=== PATIENT | female | born 1945 | race Caucasian/White ===

== ENCOUNTER → 2016-05-24 | Outpatient (REF) | payer MEDICARE, OTHER ==
[2016-05-24 19:48] LABS: BASO % 0.3 % (0.0-1.0); EOS # 0.1 K/mm3 (0.0-0.50); EOS % 1.9 % (0.0-3.0); LARGE UNSTAINED CELL # 0.1 K/mm3 (0.0-0.4); LYMPH # 1.2 K/mm3 (1.5-4.5); MEAN CORPUSCULAR HEMOGLOBIN 32.3 pg (27.0-33.0); MEAN CORPUSCULAR HGB CONC 33.6 g/dl (32.0-36.5); MONO # 0.4 K/mm3 (0.0-0.8); MONO % 5.6 % (0.0-5.0); NEUTROPHILS # 5.3 K/mm3 (1.8-7.7); NEUTROPHILS % 73.2 % (36.0-66.0); PLATELET COUNT, AUTOMATED 154 k/mm3 (150-450); RED CELL DISTRIBUTION WIDTH 12.7 % (11.5-14.5); WHITE BLOOD COUNT 7.2 K/mm3 (4.0-10.0)
[2016-05-24 20:18] LABS: ALBUMIN 4.4 GM/DL (3.2-5.2); ALBUMIN/GLOBULIN RATIO 1.22 (1.00-1.93); BILIRUBIN,TOTAL 1.4 MG/DL (0.2-1.0); CALCIUM LEVEL 9.5 MG/DL (8.8-10.2); CREATININE FOR GFR 1.17 MG/DL (0.55-1.02); FREE T4 1.22 NG/DL (0.76-1.46); GLOMERULAR FILTRATION RATE 48.8 (>45); POTASSIUM SERUM 4.1 MEQ/L (3.5-5.1)
== END ==
LOC: M SFHCADAM 15:28
PROVIDERS: ATTEND Family Medicine
DX: Z00.00 Encounter for general adult medical examination without abnormal findings (principal); E66.9 Obesity, unspecified; Z79.899 Other long term (current) drug therapy
CPT/HCPCS: 80053; 80061; 84439; 84443; 85025; G0463

== ENCOUNTER → 2017-03-09 | Outpatient (REF) | payer MEDICARE, OTHER ==
[2017-03-09 20:03] LABS: BASO # 0.1 10^3/uL (0.0-0.2); BASO % 0.8 % (0.0-1.0); EOS # 0.2 10^3/uL (0.0-0.50); EOS % 3.6 % (0.0-3.0); IMMATURE GRANULOCYTE % 0.2 % (0-0); LYMPH # 1.7 10^3/uL (1.5-4.5); LYMPH % 27.2 % (24.0-44.0); MEAN CORPUSCULAR HEMOGLOBIN 32.2 pg (27.0-33.0); MEAN CORPUSCULAR HGB CONC 32.6 g/dl (32.0-36.5); MEAN CORPUSCULAR VOLUME 98.9 fl (80.0-96.0); MONO # 0.5 10^3/uL (0.0-0.8); MONO % 8.4 % (0.0-5.0); NEUTROPHILS # 3.8 10^3/uL (1.8-7.7); NEUTROPHILS % 59.8 % (36.0-66.0); PLATELET COUNT, AUTOMATED 164 10^3/uL (150-450); RED CELL DISTRIBUTION WIDTH 12.9 % (11.5-14.5); WHITE BLOOD COUNT 6.3 10^3/uL (4.0-10.0)
[2017-03-09 20:12] LABS: ALBUMIN 4.1 GM/DL (3.2-5.2); ALBUMIN/GLOBULIN RATIO 1.17 (1.00-1.93); CALCIUM LEVEL 9.5 MG/DL (8.8-10.2); CREATININE FOR GFR 1.06 MG/DL (0.55-1.02); GLOMERULAR FILTRATION RATE 54.6 (>39); POTASSIUM SERUM 4.2 MEQ/L (3.5-5.1); TOTAL PROTEIN 7.6 GM/DL (6.4-8.2)
== END ==
LOC: M SFHCADAM 15:42
PROVIDERS: ATTEND Family Medicine
DX: I10 Essential (primary) hypertension (principal); Z23 Encounter for immunization
CPT/HCPCS: 80053; 85025; 90662; G0008; G0463

== ENCOUNTER → 2018-03-02 | Outpatient (REF) | payer MEDICARE, OTHER ==
[2018-03-02 13:17] LABS: BASO % 0.7 % (0.0-1.0); EOS # 0.3 10^3/uL (0.0-0.50); EOS % 4.5 % (0.0-3.0); HEMATOCRIT 45.2 % (36.0-47.0); HEMOGLOBIN 14.7 g/dl (12.0-15.5); IMMATURE GRANULOCYTE % 0.2 % (0-3.0); LYMPH # 2.2 10^3/uL (1.5-4.5); LYMPH % 36.7 % (24.0-44.0); MEAN CORPUSCULAR HEMOGLOBIN 31.7 pg (27.0-33.0); MEAN CORPUSCULAR HGB CONC 32.5 g/dl (32.0-36.5); MEAN CORPUSCULAR VOLUME 97.4 fl (80.0-96.0); MONO # 0.5 10^3/uL (0.0-0.8); MONO % 8.7 % (0.0-5.0); NEUTROPHILS # 2.9 10^3/uL (1.8-7.7); NEUTROPHILS % 49.2 % (36.0-66.0); PLATELET COUNT, AUTOMATED 161 10^3/uL (150-450); RED BLOOD COUNT 4.64 10^6/uL (4.00-5.40); RED CELL DISTRIBUTION WIDTH 12.5 % (11.5-14.5)
[2018-03-02 13:27] LABS: ALBUMIN 3.8 GM/DL (3.2-5.2); ALBUMIN/GLOBULIN RATIO 1.19 (1.00-1.93); ALKALINE PHOSPHATASE 117 U/L (45-117); ALT/SGPT 20 U/L (12-78); ANION GAP 7 MEQ/L (8-16); AST/SGOT 17 U/L (7-37); BILIRUBIN,TOTAL 0.6 MG/DL (0.2-1.0); BLOOD UREA NITROGEN 20 MG/DL (7-18); CALCIUM LEVEL 9.1 MG/DL (8.8-10.2); CARBON DIOXIDE LEVEL 29 MEQ/L (21-32); CHLORIDE LEVEL 107 MEQ/L (98-107); CREATININE FOR GFR 1.08 MG/DL (0.55-1.30); GLOMERULAR FILTRATION RATE 53.2 (>39); GLUCOSE, FASTING 100 MG/DL (70-100); SODIUM LEVEL 143 MEQ/L (136-145)
== END ==
LOC: M SFHCADAM 08:45
DX: R26.89 Other abnormalities of gait and mobility (principal); I10 Essential (primary) hypertension
CPT/HCPCS: 80053

== ENCOUNTER → 2018-04-18 | Outpatient (CLI) | payer MEDICARE, OTHER | LOC: M ST 11:23 | DX: R13.10 Dysphagia, unspecified (principal) | CPT/HCPCS: 74230 ==

== ENCOUNTER → 2018-10-05 | Outpatient (REF) | payer MEDICARE, OTHER ==
[2018-10-05 19:33] LABS: BASO # 0.1 10^3/uL (0.0-0.2); BASO % 0.8 % (0.0-1.0); EOS # 0.2 10^3/uL (0.0-0.50); HEMATOCRIT 42.1 % (36.0-47.0); HEMOGLOBIN 13.8 g/dl (12.0-15.5); LYMPH # 1.8 10^3/uL (1.5-4.5); LYMPH % 29.6 % (24.0-44.0); MEAN CORPUSCULAR HEMOGLOBIN 33.3 pg (27.0-33.0); MEAN CORPUSCULAR HGB CONC 32.8 g/dl (32.0-36.5); MEAN CORPUSCULAR VOLUME 101.4 fl (80.0-96.0); MONO # 0.6 10^3/uL (0.0-0.8); MONO % 9.6 % (0.0-5.0); NEUTROPHILS # 3.4 10^3/uL (1.8-7.7); NEUTROPHILS % 56.8 % (36.0-66.0); PLATELET COUNT, AUTOMATED 159 10^3/uL (150-450); RED BLOOD COUNT 4.15 10^6/uL (4.00-5.40); WHITE BLOOD COUNT 5.9 10^3/uL (4.0-10.0)
[2018-10-05 19:55] LABS: ALT/SGPT 18 U/L (12-78); BILIRUBIN,TOTAL 1.1 MG/DL (0.2-1.0); BLOOD UREA NITROGEN 15 MG/DL (7-18); CALCIUM LEVEL 8.8 MG/DL (8.8-10.2); CARBON DIOXIDE LEVEL 28 MEQ/L (21-32); CHLORIDE LEVEL 108 MEQ/L (98-107); CHOLESTEROL LEVEL 169 MG/DL (<200); CHOLESTEROL RISK RATIO 2.449 (<5); CREATININE FOR GFR 0.94 MG/DL (0.55-1.30); GLOMERULAR FILTRATION RATE > 60.0 (>39); GLUCOSE, FASTING 78 MG/DL (70-100); HDL CHOLESTEROL 69 MG/DL (>40); LDL CHOLESTEROL 82 MG/DL (<100); NON-HDL-C 100 MG/DL; POTASSIUM SERUM 4.1 MEQ/L (3.5-5.1); SODIUM LEVEL 143 MEQ/L (136-145); TOTAL PROTEIN 7.4 GM/DL (6.4-8.2); TRIGLYCERIDES LEVEL 88 MG/DL (<150)
== END ==
LOC: M SFHCADAM 14:34
PROVIDERS: ATTEND Family Medicine
DX: I10 Essential (primary) hypertension (principal); E78.5 Hyperlipidemia, unspecified
CPT/HCPCS: 80053; 80061; 85025; G0463

== ENCOUNTER → 2018-10-19 | Outpatient (REF) | payer MEDICARE, OTHER | LOC: M SFHCADAM 13:34 | PROVIDERS: ATTEND Family Medicine | DX: N39.0 Urinary tract infection, site not specified (principal) | CPT/HCPCS: 81002; 87088; 87186; G0463 ==

== ENCOUNTER → 2018-12-28 | Outpatient (CLI) | payer MEDICARE, OTHER ==
--- NOTE | 2018-12-28 10:13 | REP ---
DEEP VENOUS ULTRASONOGRAPHY BILATERAL THIGH, RULE OUT DVT: REASON: Pain and swelling. TECHNIQUE: Multiple ultrasonographic images of the deep venous structures of the thigh were obtained from the common femoral vein to the popliteal vein along with Doppler interrogation and color flow Doppler images. FINDINGS: There is no abnormal echogenic material seen within any of the visualized deep venous structures that would suggest acute thrombosis. Coaptation is unremarkable throughout. Doppler interrogation shows an expected response to respiratory variability and augmentation. The color flow images show what appears to be a normal vascular pattern throughout. IMPRESSION: There is no ultrasonographic evidence of deep venous thrombosis involving any of the visualized deep venous structures of the bilateral thigh, as described above. Electronically Signed by Tee Samson DO 12/28/2018 03:28 P
== END ==
LOC: M RAD 09:07
PROVIDERS: ATTEND Physician Assistant
DX: M79.605 Pain in left leg (principal); R22.42 Localized swelling, mass and lump, left lower limb

== ENCOUNTER 2019-10-09 21:52 | Inpatient (IN) | payer MEDICARE, OTHER ==
[~2019-10-09] VITALS: Ht 162.6 cm; Wt 80.7 kg
[2019-10-09] MEDS ORDERED: LISI-538 PO (22:03)
[2019-10-09] MEDS ORDERED: PARO5TAB PO (22:03)
[2019-10-09] MEDS ORDERED: OMEP-218 PO (22:03)
[2019-10-09] MEDS ORDERED: SIMV10TA21 PO (22:03)
[2019-10-09 22:55] LABS: BASO % 0.4 % (0.0-1.0); EOS % 0.4 % (0.0-3.0); HEMATOCRIT 46.6 % (36.0-47.0); HEMOGLOBIN 15.5 g/dl (12.0-15.5); MEAN CORPUSCULAR HEMOGLOBIN 31.6 pg (27.0-33.0); MEAN CORPUSCULAR HGB CONC 33.3 g/dl (32.0-36.5); MEAN CORPUSCULAR VOLUME 94.9 fl (80.0-96.0); MONO # 0.8 10^3/uL (0.0-0.8); MONO % 6.9 % (0.0-5.0); NEUTROPHILS # 9.1 10^3/uL (1.5-8.5); NEUTROPHILS % 82.8 % (36.0-66.0); PLATELET COUNT, AUTOMATED 167 10^3/uL (150-450); RED BLOOD COUNT 4.91 10^6/uL (4.00-5.40)
[2019-10-09 23:06] LABS: INR 0.97; PROTHROMBIN TIME 12.6 SECONDS (11.8-14.0)
[2019-10-09 23:07] LABS: PARTIAL THROMBOPLASTIN TIME 26.3 SECONDS (25.0-38.4)
[2019-10-09 23:18] LABS: ALBUMIN 4.2 GM/DL (3.2-5.2); ALT/SGPT 21 U/L (12-78); BILIRUBIN,DIRECT 0.2 MG/DL (0.0-0.2); BILIRUBIN,TOTAL 0.7 MG/DL (0.2-1.0); BLOOD UREA NITROGEN 19 MG/DL (7-18); CALCIUM LEVEL 9.4 MG/DL (8.8-10.2); CARBON DIOXIDE LEVEL 26 MEQ/L (21-32); CHLORIDE LEVEL 110 MEQ/L (98-107); CREATININE FOR GFR 1.01 MG/DL (0.55-1.30); GLOMERULAR FILTRATION RATE 57.4 (>39); GLUCOSE, FASTING 120 MG/DL (70-100); LIPASE 60 U/L (73-393); POTASSIUM SERUM 3.5 MEQ/L (3.5-5.1); SODIUM LEVEL 141 MEQ/L (136-145); TOTAL PROTEIN 7.7 GM/DL (6.4-8.2)
[2019-10-10] MEDS ORDERED: lisinopriL 20 MG TAB PO ONE
[2019-10-10] MEDS ORDERED: ISOVUE-370 76% 100ML VIAL As Ordered ONE (00:08)
[2019-10-10] MEDS ORDERED: LABETALOL 100MG/20ML VIAL IV STA (00:34)
--- NOTE | 2019-10-10 00:36 | REPVR ---
PROCEDURE INFORMATION: Exam: CT Abdomen And Pelvis With Contrast Exam date and time: 10/09/2019 11:54 PM Age: 74 years old Clinical indication: Other: Rectal bleed; Abdominal pain; Generalized; Additional info: Llq pain, rectal bleeding TECHNIQUE: Imaging protocol: Computed tomography of the abdomen and pelvis with intravenous contrast. Radiation optimization: All CT scans at this facility use at least one of these dose optimization techniques: automated exposure control; mA and/or kV adjustment per patient size (includes targeted exams where dose is matched to clinical indication); or iterative reconstruction. Contrast material: ISO; Contrast volume: 100 ml; Contrast route: AC; COMPARISON: No relevant prior studies available. FINDINGS: Liver: Normal. No mass. Gallbladder and bile ducts: Normal. No calcified stones. No ductal dilation. Pancreas: Normal. No ductal dilation. Spleen: Small low-attenuation area in the caudal aspect of the spleen measuring 12 mm which is nonspecific. Adrenals: Normal. No mass. Kidneys and ureters: There are bilateral renal cysts measuring up to 13 mm on the right and 15 mm on the left which appear to reflect Bosniak 1 cysts with no required follow-up. There is a Hounsfield measurement of 15 on the left and 7 on the right. Stomach and bowel: Minimal diverticulosis of the distal ileum. There is colonic diverticulosis without evidence of diverticulitis. Wall thickening of the left colon beginning in the splenic flexure and is greatest in the distal descending colon consistent with left colitis. There is pericolonic induration about the descending colon. Appendix: There are no changes of appendicitis. A normal appendix is not seen. Intraperitoneal space: Unremarkable. No free air. No significant fluid collection. Vasculature: Unremarkable. No abdominal aortic aneurysm. Lymph nodes: Unremarkable. No enlarged lymph nodes. Bladder: Unremarkable as visualized. Reproductive: Status post hysterectomy. Bones/joints: Unremarkable. No acute fracture. Soft tissues: Unremarkable. Other findings: Minimal left base fibro-atelectatic change adjacent to the left hemidiaphragm which is elevated. IMPRESSION: 1. Mild nonspecific left colitis, greatest in the distal descending colon. 2. Colonic diverticulosis without diverticulitis. 3. Small nonspecific low-attenuation focus in the caudal spleen . 4. Minimal diverticulosis of the distal ileum. 5. Status post hysterectomy. Electronically signed by: Dinesh Krueger On 10/10/2019 00:36:26 AM
[2019-10-10] MEDS ORDERED: CIPROFLOXACIN 500MG TABLET PO ONE (01:00)
[2019-10-10] MEDS ORDERED: metroNIDAZOLE (FLAGYL) 500 MG TAB PO ONE (01:00)
[2019-10-10] MEDS ORDERED: PANTOPRAZOLE 40MG VIAL (C9113 PER 1) IV ONE (01:00)
[2019-10-10 01:23] LABS: CK-MB VALUE MASS < 1.0 NG/ML (<3.6); CPK CREATINE PHOSPHOKINASE 63 U/L (26-192); MB/CK RELATIVE INDEX 1.59 (< OR =4); TROPONIN I < 0.02 NG/ML (< 0.10)
[2019-10-10] MEDS ORDERED: LABETALOL 100MG/20ML VIAL IV PRN (02:00)
--- NOTE | 2019-10-10 02:56 | HPEPDOC ---
[facility] Medical History & Physical Date of Admission October 10, 2019 Date of Service: October 10, 2019 Primary Care Physician: ELVIA LORA DO Attending Physician: SUZANNA SAVAGE MD History and Physical CHIEF COMPLAINT: Hematochezia HISTORY OF PRESENT ILLNESS: Azalia Russo is a 74-year-old female who presented to the emergency room today after multiple episodes of hematochezia at home. She states she started feeling unwell this morning with some abdominal cramping in the left lower quadrant. She also had an episode of dizziness and weakness which resolved after about a minute with sitting down. Subsequently, she went to the bathroom for a bowel movement and noticed bright red blood in the toilet. She states she has a history of hemorrhoids, but this seems like a lot more blood than she had past before. She went about her day and had multiple additional episodes of hematochezia with bowel movements. She denies loose or watery stools. She states she did have some nausea in the morning when she felt lightheaded, but otherwise denies vomiting. She does note a decreased appetite today, but is tolerating small amounts of food. 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 She states that she has chronic left-sided back pain, but it has been much more sore since then. She states that she does not like taking a lot of medicines and therefore has not taken much for her back pain. She does take Aleve occasionally at home for it. She rates her pain a 0 out of 10. If she is lying still, but a 10 out of 10. Anytime she moves. The pain is in the left side of her lower back and does not radiate. She states it is a sharp, achy pain. She does have a history of hypertension and does not measure her blood pressure home. She states last time she was at a doctor was about a year ago and she was told her blood pressure was okay then. She has not taken her lisinopril in the past few days because she ran out. PAST MEDICAL HISTORY: 1. Hypertension 2. Hyperlipidemia. 3. Symptomatic menopause. 4. GERD PAST SURGICAL HISTORY: 1. Appendectomy 2. Hysterectomy. 3. Multiple surgeries on both feet. SOCIAL HISTORY: Never smoker, very occasional alcohol (1 beer, 2-3 times a year). No illicit drug use. Lives at home alone with her two dogs FAMILY HISTORY: Father: 77 yrs, kidney failure Mother: 83 yrs, temporal arteritis, thyroid disease Siblings: alive 66, 62 yrs, Brother born with brain tumor. Sister with HTN and breast cancer, thyroid disease ALLERGIES: Please see below. REVIEW OF SYSTEMS: CONSTITUTIONAL: Denies fevers, chills, night sweats, fatigue, unexpected change in weight. HEENT: Denies change in vision, change in hearing. CARDIOVASCULAR: Denies chest pain, palpitations, shortness of breath. RESPIRATORY: Denies dyspnea, cough, wheezing. GASTROINTESTINAL: Denies vomiting, diarrhea, constipation. GENITOURINARY: Denies dysuria, urinary frequency, urinary urgency. SKIN: Positive for rash under breasts. MUSCULOSKELETAL: Positive for chronic back pain NEUROLOGICAL: Denies headache, dizziness, weakness. PSYCHIATRIC: Denies change in mood. HOME MEDICATIONS: Please see below. PHYSICAL EXAMINATION: VITAL SIGNS: See below GENERAL: Alert, comfortable, in no acute distress HEENT: Normocephalic, atraumatic, PERRLA, EOMI, sclera anicteric, moist mucous membranes NECK: Supple, trachea midline, no lymphadenopathy CARDIOVASCULAR: Regular rate and rhythm, normal S1 and S2. No murmurs, rubs, or gallops RESPIRATORY: Clear to auscultation bilaterally with equal air entry bilaterally. No wheezing, rhonchi, or rales. ABDOMEN: Soft, nondistended, bowel sounds present. Mildly tender to palpation in the LLQ without rebound, guarding, or rigidity EXTREMITIES: No cyanosis or edema. Pulses 2+/4 in bilateral upper and lower extremities SKIN: Moist cracked skin beneath bilateral breasts, no erythema or warmth NEUROLOGIC: Alert and oriented 3 to person, place and time. No focal deficits appreciated PSYCHIATRIC: Mood and affect appropriate LABORATORY DATA: See below. IMAGING: - CT abdomen/pelvis: 1. Mild nonspecific left colitis, greatest in the distal descending colon. 2. Colonic diverticulosis without diverticulitis. 3. Small nonspecific low-attenuation focus in the caudal spleen . 4. Minimal diverticulosis of the distal ileum. 5. Status post hysterectomy. MICROBIOLOGY: Please see below. ASSESSMENT: 74-year-old female with a history of hypertension, presents with one -day history of hematochezia, admitted for treatment of severe and symptomatic hypertension and acute colitis. PLAN: 1. Severe asymptomatic hypertension 2/2 medical noncompliance vs worsening essential hypertension vs undertreated back pain - had not taken her medications because it ran out, also states she does not like to take pills. As high as 230s/110s in the ED. s/p one dose IV labetalol in the ED - continue IV labetalol prn - continue home lisinopril 20 mg. Add amlodipine 5 mg - pt has chronic back pain which may contribute, pain control with tylenol 2. GI bleed 2/2 hemorrhoids vs acute colitis - check stool occult. H/H wnl, recheck with morning labs - IV PPI BID - likely referral to GI on discharge for follow up endoscopy/colonoscopy 3. Acute colitis 2/2 infectious vs inflammatory - Mildly elevated WBC count of 11.0. No current concern for sepsis. Check GI panel and stool occult blood. Abx coverage with ciprofloxacin and metronidazole day #1 of 7 4. Abnormal EKG - no priors to compare. monitor on telemetry, ordered TTE 5. Chronic low back pain - worse due to recent heavy lifting at home, takes occasional Aleve at home - pain control with tylenol. may be contributing to elevated BP 6. Hyperlipidemia. - continue home statin 7. GERD - PPI as noted above 8. History of hot flashes. - continue home paxil DVT prophylaxis: Praneeth's/SCD's, hold off on medical prophylaxis in the setting of GI bleed Disposition: admitted for further work up and blood pressure control Vital Signs Vital Signs Date Time Temp Pulse Resp B/P (MAP) Pulse Ox O2 Delivery O2 Flow Rate FiO2 10/10/19 01:32 72 230/120 10/09/19 23:23 94 10/09/19 21:52 98.8 20 Room Air Laboratory Data Labs 24H Laboratory Tests 2 10/09/19 22:32: Immature Granulocyte % (Auto) 0.5, Neutrophils (%) (Auto) 82.8H, Lymphocytes (%) (Auto) 9.0L, Monocytes (%) (Auto) 6.9H, Eosinophils (%) (Auto) 0.4, Basophils (%) (Auto) 0.4, Neutrophils # (Auto) 9.1H, Lymphocytes # (Auto) 1.0L, Monocytes # (Auto) 0.8, Eosinophils # (Auto) 0.0, Basophils # (Auto) 0.0, Nucleated Red Blood Cells % (auto) 0.0, Prothrombin Time 12.6, Prothromb Time International Ratio 0.97, Activated Partial Thromboplast Time 26.3, Anion Gap 5L, Glomerular Filtration Rate 57.4, Calcium Level 9.4, Total Bilirubin 0.7, Direct Bilirubin 0.2, Aspartate Amino Transf (AST/SGOT) 20, Alanine Aminotransferase (ALT/SGPT) 21, Alkaline Phosphatase 139H, Total Creatine Kinase 63, Creatine Kinase MB < 1.0, Creatine Kinase MB Relative Index 1.59, Troponin I < 0.02, Total Protein 7.7, Albumin 4.2, Albumin/Globulin Ratio 1.2, Lipase 60L CBC/BMP Laboratory Tests 10/09/19 22:32 Home Medications Scheduled Lisinopril (Lisinopril) 20 Mg Tablet, 20 MG PO QHS Omeprazole (Omeprazole) 20 Mg Capsule.dr, 20 MG PO Q2D AT BEDTIME Paroxetine (Paroxetine HCl) 10 Mg Tablet, 10 MG PO QHS Simvastatin (Simvastatin) 10 Mg Tablet, 10 MG PO QHS Allergies Coded Allergies: Cephalosporins (Verified Allergy, Unknown, RASH, 10/10/19) TAPE (Verified Allergy, Unknown, RASH FROM PLASTIC TAPE, 10/10/19) aspirin (Verified Adverse Reaction, Unknown, VERTIGO,RINGING IN EARS, 10/10/19) naproxen (Verified Adverse Reaction, Unknown, NAUSEA, 10/10/19) KHANH KEARNS D.O. October 10, 2019 02:56
[2019-10-10] MEDS: amLODIPine 5 MG TAB PO SCH ×2 (03:39→09:08)
[2019-10-10] MEDS: ACETAMINOPHEN TAB 650MG DOSE (2X325MG) PO PRN ×2 (03:39→14:42)
[2019-10-10] MEDS: hydrALAZINE 20MG/ML 1ML VIAL (J0360 PER 20MG) IV SCH ×4 (04:21→22:10)
[2019-10-10 05:03] VITALS: BP 138/65
[2019-10-10] MEDS: metroNIDAZOLE (FLAGYL) 500 MG TAB PO SCH ×3 (05:50→21:06)
[2019-10-10 06:08] LABS: HEMATOCRIT 45.1 % (36.0-47.0); HEMOGLOBIN 15.4 g/dl (12.0-15.5); MEAN CORPUSCULAR HEMOGLOBIN 32.7 pg (27.0-33.0); MEAN CORPUSCULAR HGB CONC 34.1 g/dl (32.0-36.5); MEAN CORPUSCULAR VOLUME 95.8 fl (80.0-96.0); PLATELET COUNT, AUTOMATED 149 10^3/uL (150-450); RED BLOOD COUNT 4.71 10^6/uL (4.00-5.40); WHITE BLOOD COUNT 11.2 10^3/uL (4.0-10.0)
[2019-10-10 06:29] LABS: CHOLESTEROL RISK RATIO 2.585 (<5); CREATININE FOR GFR 1.03 MG/DL (0.55-1.30); GLOMERULAR FILTRATION RATE 56.1 (>39); MAGNESIUM LEVEL 1.9 MG/DL (1.8-2.4); POTASSIUM SERUM 3.4 MEQ/L (3.5-5.1)
[2019-10-10 08:00] VITALS: BP 118/58
--- NOTE | 2019-10-10 08:11 | ECGEPIP ---
[facility] - ED Test Date: 2019-10-10 Pat Name: BROOKLYN KOWALSKI Department: Room: [place] [address] Gender: Female Fluid Dynamicist: natalie : 1945 Requested By: BENITO Rios Order Number: [id number] Reading MD: Andrez Samaniego Measurements Intervals [place] Rate: 60 P: 259 [place]: 99 QRS: -76 QRSD: 143 T: 8 QT: 429 QTc: 430 Interpretive Statements JUNCTIONAL RHYTHM RIGHT BUNDLE BRANCH BLOCK NO PRIORS FOR COMPARISON Electronically Signed on 10-10-2019 8:10:52 EDT by Andrez Samaniego
[2019-10-10] MEDS ORDERED: amLODIPine 5 MG TAB PO SCH (09:00)
[2019-10-10] MEDS ORDERED: ENOXAPARIN 40MG/0.4ML SYRINGE (J1650 PER 10MG) SC SCH (09:00)
[2019-10-10] MEDS: PANTOPRAZOLE 40MG VIAL (C9113 PER 1) IV SCH ×2 (09:07→21:05)
[2019-10-10] MEDS: TRIPLE PASTE 2OZ OINTMENT TOP SCH ×2 (09:07→21:07)
[2019-10-10] MEDS ORDERED: SLF 3 ML SYR IV PRN (11:30)
[2019-10-10 12:00] VITALS: BP 114/65
[2019-10-10] MEDS: SLF 3 ML SYR IV SCH ×2 (14:00→21:06)
[2019-10-10 16:00] VITALS: BP 120/63
--- NOTE | 2019-10-10 19:08 | IPNPDOC ---
Text Note Date of Service The patient was seen on 10/10/19. NOTE Subjective: -No complaints this morning, feels better. PHYSICAL EXAMINATION: VITAL SIGNS: See below GENERAL: Alert, comfortable, in no acute distress, sitting up HEENT: Normocephalic, atraumatic, PERRLA, EOMI, sclera anicteric, moist mucous membranes NECK: Supple, trachea midline, no lymphadenopathy CARDIOVASCULAR: Regular rate and rhythm, normal S1 and S2. No murmurs, rubs, or gallops RESPIRATORY: Clear to auscultation bilaterally. No wheezing, rhonchi, or rales. ABDOMEN: Normoactive bowel sounds, soft, NTND without rebound, guarding, or rigidity EXTREMITIES: No edema. Pulses 2+/4 in bilateral upper and lower extremities NEUROLOGIC: No focal deficits appreciated PSYCHIATRIC: AOx3 LABORATORY DATA: Reviewed. Stable hgb 15.4 IMAGING: - CT abdomen/pelvis: 1. Mild nonspecific left colitis, greatest in the distal descending colon. 2. Colonic diverticulosis without diverticulitis. 3. Small nonspecific low-attenuation focus in the caudal spleen . 4. Minimal diverticulosis of the distal ileum. 5. Status post hysterectomy. MICROBIOLOGY: Please see below. ASSESSMENT: 74-year-old female with a history of hypertension, presents with one-day history of hematochezia, admitted for treatment of severe hypertension and acute colitis. PLAN: 1. Hypertensive urgency 2/2 medical noncompliance - had not taken her medications because it ran out, also stated she does not like to take pills. - continue IV labetalol prn, has not needed it since restarting home lisinopril and amlodipine - continue home lisinopril 20 mg. Add amlodipine 5 mg 2. GI bleed: resolved - negative stool occult. H/H wnl - Switch PPI BID from IV to PO daily - referral to GI on discharge for follow up endoscopy/colonoscopy 3. Acute colitis 2/2 infectious vs inflammatory - Mildly elevated WBC count of 11.0. No current concern for sepsis. Check GI panel and stool occult blood. Abx coverage with ciprofloxacin and metronidazole day #2 of 7 4. Abnormal EKG - monitor on telemetry, f/u TTE 5. Chronic low back pain: worse due to recent heavy lifting at home, takes occasional Aleve at home - pain control with tylenol. 6. Hyperlipidemia. - continue home statin 7. GERD - PPI as noted above 8. History of hot flashes. - continue home paxil DVT prophylaxis: Praneeth's/SCD's, hold off on medical prophylaxis in the setting of GI bleed Disposition: likely discharge tomorrow if stable and PT/OT clears her for home discharge. VS,Fishbone, I+O VS, Fishbone, I+O Laboratory Tests 10/09/19 22:32 10/10/19 05:49 Vital Signs Date Time Temp Pulse Resp B/P (MAP) Pulse Ox O2 Delivery O2 Flow Rate FiO2 10/10/19 16:00 97.6 57 18 120/63 (82) 93 Room Air ANGEL REY MD October 10, 2019 19:08
[2019-10-10 20:00] VITALS: BP 143/66
[2019-10-10] MEDS ORDERED: lisinopriL 20 MG TAB PO SCH (21:00)
[2019-10-10] MEDS ORDERED: PARoxetine 10MG TABLET PO SCH (21:00)
[2019-10-10] MEDS ORDERED: SIMVASTATIN 10 MG TAB PO SCH (21:00)
[2019-10-10 22:00] VITALS: BP 143/90
[2019-10-10] MEDS: NYSTATIN 100,000 UNITS/GM TOPICAL PWD 15 GM TOP SCH (23:45)
[2019-10-11] VITALS: BP 125/58
[2019-10-11] MEDS ORDERED: RAMELTEON 8 MG TAB (ROZEREM) PO PRN (01:30)
[2019-10-11 04:00] VITALS: BP 123/71
[2019-10-11] MEDS: SLF 3 ML SYR IV SCH ×2 (05:00→14:19)
[2019-10-11] MEDS: metroNIDAZOLE (FLAGYL) 500 MG TAB PO SCH ×2 (05:00→14:17)
[2019-10-11 05:44] LABS: HEMATOCRIT 40.5 % (36.0-47.0); MEAN CORPUSCULAR HGB CONC 33.1 g/dl (32.0-36.5); MEAN CORPUSCULAR VOLUME 96.7 fl (80.0-96.0); PLATELET COUNT, AUTOMATED 145 10^3/uL (150-450); RED BLOOD COUNT 4.19 10^6/uL (4.00-5.40); WHITE BLOOD COUNT 9.6 10^3/uL (4.0-10.0)
[2019-10-11 05:45] LABS: CALCIUM LEVEL 8.9 MG/DL (8.8-10.2); CREATININE FOR GFR 1.01 MG/DL (0.55-1.30); GLOMERULAR FILTRATION RATE 57.4 (>39); POTASSIUM SERUM 3.6 MEQ/L (3.5-5.1)
[2019-10-11 05:47] LABS: HEMOGLOBIN 13.4 g/dl (12.0-15.5)
[2019-10-11] MEDS ORDERED: CIPROFLOXACIN 500MG TABLET PO SCH (06:00)
[2019-10-11] MEDS ORDERED: PARO5TAB PO (07:22)
[2019-10-11] MEDS ORDERED: LISI-538 PO (07:22)
[2019-10-11] MEDS ORDERED: OMEP-218 PO ×2 (07:22→10:57)
[2019-10-11] MEDS ORDERED: AMLO5TAB6 PO (07:22)
[2019-10-11] MEDS ORDERED: NYST10006 TOP (07:22)
[2019-10-11] MEDS ORDERED: CIPR-249 PO (07:22)
[2019-10-11] MEDS ORDERED: SIMV10TA21 PO (07:22)
[2019-10-11 08:00] VITALS: BP 132/68
[2019-10-11] MEDS: TRIPLE PASTE 2OZ OINTMENT TOP SCH (09:00)
[2019-10-11] MEDS: PANTOPRAZOLE 40MG VIAL (C9113 PER 1) IV SCH (09:18)
[2019-10-11] MEDS: NYSTATIN 100,000 UNITS/GM TOPICAL PWD 15 GM TOP SCH (09:18)
[2019-10-11 09:19] VITALS: BP 123/71
[2019-10-11] MEDS: amLODIPine 5 MG TAB PO SCH (09:19)
--- NOTE | 2019-10-11 10:56 | DS.PDOC ---
Discharge Summary General Date of Admission October 10, 2019 at 03:59 Date of Discharge 10/11/2019 Attending Physician: ANGEL REY MD Discharge Summary PROCEDURES PERFORMED DURING STAY: None ADMITTING DIAGNOSES: 1. Abdominal pain 2. Hypertensive urgency DISCHARGE DIAGNOSES: 1. Acute mild nonspecific left sided colitis 2. Diverticulosis 3. Hypertensive urgency 4. Hyperlipidemia. 5. GERD COMPLICATIONS/CHIEF COMPLAINT: Hypertensive Urgency. HISTORY OF PRESENT ILLNESS: 74-year-old W who presented to the emergency room after multiple episodes of hematochezia at home, with associated abdominal cramping in the left lower quadrant since morning on the day of presentation, as well as an episode of dizziness and weakness which resolved after sitting down. Subsequently, she went to the bathroom for a bowel movement and noticed bright red blood in the toilet. She reported a history of hemorrhoids, but this seemed like a lot more blood than she had before. She went about her day and had multiple additional episodes of hematochezia with bowel movements without loose or watery stools. She also reported some nausea without vomiting and poor PO. 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 HOSPITAL COURSE: In the ED, she was hypertensive to SBP 200s in the setting of long standing medication non compliance and required IV labetalol and her eventual resolution of her hypertension with yazidi of her home antihypertensives. CT A/P revealed left descending mild colitis and diverticulosis without evidence of diverticulitis, while she had mild leukocytosis to 11 and grossly normal BMP. She was started on cipro/flagyl and for the mild colitis, hydrated with IVF and slowly reintroduced to a diet that she is not tolerating a regular diet well without further bleeding episodes and was guaiac negative, while her H/H remained stable wnl. She is now being discharged home to follow up with PCP with a referral to GI for outpatient follow up and will completed 8 more days for a 10d course of cipro for the mild left sided colitis. DISCHARGE MEDICATIONS: Please see below. ALLERGIES: Please see below. PHYSICAL EXAMINATION ON DISCHARGE: VITAL SIGNS: See below GENERAL: Alert, comfortable, in no acute distress HEENT: NCAT, PERRLA, EOMI, sclera anicteric, moist mucous membranes NECK: Supple CARDIOVASCULAR: Regular rate and rhythm, normal S1 and S2. No murmurs, rubs, or gallops RESPIRATORY: Clear to auscultation bilaterally with equal air entry bilaterally. No wheezing, rhonchi, or rales. ABDOMEN: Soft, nondistended, bowel sounds present. Mild LLQ TTP without rebound, guarding, or rigidity EXTREMITIES: WWP, no edema, 2+ DP pulses NEUROLOGIC: No focal deficits appreciated PSYCHIATRIC: AOx3 LABORATORY DATA: See below. IMAGING: - CT abdomen/pelvis: 1. Mild nonspecific left colitis, greatest in the distal descending colon. 2. Colonic diverticulosis without diverticulitis. 3. Small nonspecific low-attenuation focus in the caudal spleen . 4. Minimal diverticulosis of the distal ileum. 5. Status post hysterectomy. PROGNOSIS: Good with medication adherence ACTIVITY: As tolerated DIET: Regular DISCHARGE PLAN: Home with PCP follow up to complete 8 more days of cipro DISPOSITION: Home DISCHARGE INSTRUCTIONS: 1. Please take your medications as directed and please make an effort to see your PCP for follow up ITEMS TO FOLLOWUP ON ON OUTPATIENT: 1. Colitis 2. Hypertension 3. GIB DISCHARGE CONDITION: Stable TIME SPENT ON DISCHARGE: 32 minutes. Vital Signs/I&Os Vital Signs Date Time Temp Pulse Resp B/P (MAP) Pulse Ox O2 Delivery O2 Flow Rate FiO2 10/11/19 04:00 97.0 70 20 123/71 (88) 94 Room Air I&O- Last 24 Hours up to 6 AM 10/11/19 06:00 Intake Total 1320 ml Output Total 150 ml Balance 1170 ml Laboratory Data Labs 24H Laboratory Tests 2 10/11/19 04:51: Nucleated Red Blood Cells % (auto) 0.0, Anion Gap 5L, Glomerular Filtration Rate 57.4, Calcium Level 8.9 CBC/BMP Laboratory Tests 10/11/19 04:51 Microbiology Microbiology 10/10/19 Gastrointestinal Tract Panel (PCR) - Final, Complete 10/10/19 Stool Occult Blood (SD) - Final, Complete Discharge Medications Scheduled Amlodipine Besylate (Amlodipine Besylate) 5 Mg Tablet, 5 MG PO DAILY Ciprofloxacin HCl (Cipro) 500 Mg Tablet, 500 MG PO DAILY@06 Lisinopril (Lisinopril) 20 Mg Tablet, 20 MG PO QHS Nystatin (Nystop) 60 Gm Powder, 1 DOSE TOP BID Omeprazole (Omeprazole) 20 Mg Capsule.dr, 20 MG PO Q2D AT BEDTIME Paroxetine (Paroxetine HCl) 10 Mg Tablet, 10 MG PO QHS Simvastatin (Simvastatin) 10 Mg Tablet, 10 MG PO QHS Allergies Coded Allergies: Cephalosporins (Verified Allergy, Unknown, RASH, 10/10/19) TAPE (Verified Allergy, Unknown, RASH FROM PLASTIC TAPE, 10/10/19) aspirin (Verified Adverse Reaction, Unknown, VERTIGO,RINGING IN EARS, 10/10/19) naproxen (Verified Adverse Reaction, Unknown, NAUSEA, 10/10/19) ANGEL REY MD October 11, 2019 07:14
[2019-10-11 12:00] VITALS: BP 127/64
--- NOTE | 2019-10-11 16:31 | ECHO ---
DATE OF PROCEDURE: 10/11/2019 REFERRING PHYSICIAN: Dr. Vilma Hurtado INDICATION: Abnormal ECG. HEIGHT: 163 cm WEIGHT: 81 kg 2D MEASUREMENTS: Aortic root: 2.8 cm Left atrium: 3.0 cm Ventricular septum: 1.21 cm Posterior wall: 1.20 cm Left ventricle diastole: 3.8 cm Aortic root: 2.0 cm Inferior vena cava: 1.3 cm DOPPLER MEASUREMENTS: Mild aortic regurgitation. No aortic stenosis. Aortic valve velocity: 113 cm/s LVOT velocity: 110 cm/s LVOT VTI: 21.2 cm No mitral regurgitation. Mitral E velocity: 63.7 cm/s Mitral A velocity: 75.0 cm/s Mitral deceleration time: 264 ms Very mild tricuspid regurgitation. No pulmonic regurgitation. MITRAL ANNULAR TISSUE DOPPLER: E prime septal: 5.4 cm/s E prime lateral: 6.3 cm/s DESCRIPTION: Rhythm was sinus. This was a moderately technically difficult echocardiogram. This was a 2D, M-mode, color flow Doppler and pulse wave Doppler examination and included mitral annular tissue Doppler. CONCLUSIONS: 1. Normal left ventricle internal dimensions. Borderline concentric left ventricle hypertrophy. No regional wall motion abnormalities. Hyperdynamic left ventricular (LV) systolic function. Left ventricular ejection fraction (LVEF) 75% by visual estimate. Grade 1 LV diastolic dysfunction (impaired relaxation filling pattern). 2. Hyperdynamic right ventricle systolic function. Normal right ventricle size. 3. Very mild aortic valve sclerosis of a 3-cusp aortic valve. Mild aortic regurgitation. 4. No pericardial effusion. 5. Otherwise normal appearing echocardiogram Doppler findings. 6. Moderately technically difficult echocardiogram.
== END 2019-10-11 16:35 | disposition home or self-care (01) | DRG 392 ==
LOC: M ED 21:52 → M ED INP 10-10 03:59 → ENRESERV 10-10 04:05 → M PCU 10-10 05:02
PROVIDERS: ADMIT Internal Medicine; ATTEND Internal Medicine
DX: K52.9 Noninfective gastroenteritis and colitis, unspecified (principal); I10 Essential (primary) hypertension; E78.5 Hyperlipidemia, unspecified; K21.9 Gastro-esophageal reflux disease without esophagitis; M54.9 Dorsalgia, unspecified; K57.90 Diverticulosis of intestine, part unspecified, without perforation or abscess without bleeding; K64.8 Other hemorrhoids; I16.0 Hypertensive urgency; Z79.899 Other long term (current) drug therapy; Z91.14 Patient's other noncompliance with medication regimen; Z88.1 Allergy status to other antibiotic agents; Z88.6 Allergy status to analgesic agent; Z90.49 Acquired absence of other specified parts of digestive tract; Z91.048 Other nonmedicinal substance allergy status

== ENCOUNTER → 2020-03-08 | Outpatient (CLI) | payer MEDICARE, OTHER ==
[~2020-03-08] MED LIST: AMLO1TAB24 PO; CIPR-249 PO; LISI-538 PO; NYST10006 TOP; OMEP-218 PO; PARO5TAB PO; SIMV10TA21 PO
== END ==
LOC: M LABSMTC 09:10
PROVIDERS: ATTEND Anesthesiology
DX: Z01.812 Encounter for preprocedural laboratory examination (principal); Z20.828 Contact with and (suspected) exposure to other viral communicable diseases
CPT/HCPCS: C9803; U0003

== ENCOUNTER 2020-03-13 08:14 | Day surgery (SDC) | payer MEDICARE, OTHER ==
[~2020-03-13] VITALS: Ht 160 cm; Wt 78.5 kg
[~2020-03-13 08:14] MED LIST changes: +NS 1,000 ML IV ONE
[2020-03-13] MEDS ORDERED: propofoL 200 MG/20 ML VIAL As Ordered ONE (09:34)
[2020-03-13] MEDS ORDERED: LIDOCAINE 2% 100MG/5ML SDV (FOR ANES.) As Ordered ONE (09:34)
[2020-03-13] MEDS ORDERED: GLYCOPYRROLATE INJ 0.2 MG/ML 2 ML VIAL As Ordered ONE (10:01)
--- NOTE | 2020-03-13 10:08 | ROOR ---
Patient Name: Azalia Russo Procedure Date: 03/13/2020 9:46 AM Date of : 1945 Age: 75 Room: [facility] Gender: Female Note Status: Finalized Procedure: Colonoscopy Indications: Abnormal CT of the GI tract, Follow-up of acute ischemic colitis Providers: Wale TODD MD Referring MD: Di DIAZ DO Requesting Provider: Medicines: Monitored Anesthesia Care Complications: No immediate complications. Procedure: Pre-Anesthesia Assessment: - The heart rate, respiratory rate, oxygen saturations, blood pressure, adequacy of pulmonary ventilation, and response to care were monitored throughout the procedure. The Colonoscope was introduced through the anus and advanced to 15 cm into the ileum. The colonoscopy was performed without difficulty. The patient tolerated the procedure well. The quality of the bowel preparation was good. Findings: The perianal and digital rectal examinations were normal. Multiple medium-mouthed diverticula were found in the sigmoid colon. Small Internal Hemorrhoids. The exam was otherwise without abnormality on direct and retroflexion views. Impression: - Diverticulosis in the sigmoid colon. - Small Internal Hemorrhoids. - The examination was otherwise normal on direct and retroflexion views. - No specimens collected. - ("colitis" has resolved) Recommendation: - Use fiber, for example Citrucel, Fibercon, Konsyl or Metamucil. - Return to referring physician as previously scheduled. Wale Todd MD Wale TODD MD 03/13/2020 10:07:39 AM Electronically signed by Wale TODD MD Number of Addenda: 0 Note Initiated On: 03/13/2020 9:46 AM Estimated Blood Loss: Estimated blood loss: none.
[2020-03-13 10:30] VITALS: BP 192/88
== END 2020-03-13 10:45 | disposition home or self-care (01) ==
LOC: M OPP 08:14
PROVIDERS: ATTEND Internal Medicine Gastroenterology
DX: R93.3 Abnormal findings on diagnostic imaging of other parts of digestive tract (principal); K55.9 Vascular disorder of intestine, unspecified; K57.90 Diverticulosis of intestine, part unspecified, without perforation or abscess without bleeding; K64.8 Other hemorrhoids

== ENCOUNTER → 2020-06-27 | Outpatient (REF) | payer MEDICARE, OTHER ==
[~2020-06-27] MED LIST changes: -LISI-538 PO; +LISI20TA33 PO; -NS 1,000 ML IV ONE
[2020-06-27 18:42] LABS: BILIRUBIN,TOTAL 0.5 MG/DL (0.2-1.0); CALCIUM LEVEL 8.9 MG/DL (8.8-10.2); CREATININE FOR GFR 1.02 MG/DL (0.55-1.30); FREE T4 0.89 NG/DL (0.76-1.46); GLOMERULAR FILTRATION RATE 56.6 (>39); POTASSIUM SERUM 4.4 MEQ/L (3.5-5.1); THYROID STIMULATING HORMONE 0.262 uIU/ML (0.358-3.740); TOTAL PROTEIN 7.6 GM/DL (6.4-8.2)
== END ==
LOC: M SFHCADAM 15:14
PROVIDERS: ATTEND Family Medicine
DX: L29.9 Pruritus, unspecified (principal)
CPT/HCPCS: 80053; 84439; 84443; G0463

== ENCOUNTER → 2020-07-09 | Outpatient (CLI) | payer MEDICARE, OTHER ==
--- NOTE | 2020-07-09 17:15 | REP ---
INDICATION: E05.90 SUBCLINICAL HYPERTHYROIDISM. COMPARISON: None. TECHNIQUE: Real-time sonographic evaluation of thyroid performed. FINDINGS: Both lobes of the thyroid are normal in size, right lobe measuring 3.9 x 1.3 x 1.7 cm left lobe 3.9 x 1.7 x 1.5 cm. 3 subcentimeter cysts are seen in the mid and lower right lobe, measuring between 4 and 5 mm in maximum diameter. There is a 4 mm nodule in the isthmus. In the left upper pole there is a 5 mm nodule. In the mid left lobe there is a cystic and solid nodule measuring 8 x 6 x 11 mm. In the left lower pole there is a cystic and solid nodule measuring 1.5 x 1.1 x 1.6 cm. IMPRESSION: Bilateral cysts and nodules as discussed above. The largest nodules are on the left are partially cystic and solid. According to TI-RADS criteria these are TR 2 and TR 3 lesions for which no follow-up is needed. <Electronically signed by Grant Niño > 07/09/20 [id number]
== END ==
LOC: M WHC 14:25
PROVIDERS: ATTEND Family Medicine
DX: E05.90 Thyrotoxicosis, unspecified without thyrotoxic crisis or storm (principal); E04.1 Nontoxic single thyroid nodule

== ENCOUNTER → 2020-07-14 | Outpatient (REF) | payer MEDICARE, OTHER ==
[2020-07-14 18:30] LABS: FREE T4 0.97 NG/DL (0.76-1.46); THYROID STIMULATING HORMONE 0.91 uIU/ML (0.358-3.740)
== END ==
LOC: M SFHCADAM 12:37
PROVIDERS: ATTEND Family Medicine
DX: E05.90 Thyrotoxicosis, unspecified without thyrotoxic crisis or storm (principal)
CPT/HCPCS: 83519; 84439; 84443; G0463

== ENCOUNTER 2021-06-08 10:09 | Inpatient (IN) | payer MEDICARE, OTHER ==
[~2021-06-08] VITALS: Ht 147.3 cm; Wt 96.4 kg
[~2021-06-08 10:09] MED LIST changes: +OMEP-173 PO; -OMEP-218 PO
[2021-06-08] MEDS ORDERED: ATEN25TA PO (12:35)
[2021-06-08 12:45] LABS: BASO % 0.4 % (0.0-1.0); EOS # 0.1 10^3/uL (0.0-0.5); HEMATOCRIT 46.1 % (36.0-47.0); HEMOGLOBIN 15.1 g/dl (12.0-15.5); LYMPH % 14.1 % (24.0-44.0); MEAN CORPUSCULAR HEMOGLOBIN 31.8 pg (27.0-33.0); MEAN CORPUSCULAR HGB CONC 32.8 g/dl (32.0-36.5); MEAN CORPUSCULAR VOLUME 97.1 fl (80.0-96.0); MONO # 0.6 10^3/uL (0.0-0.8); MONO % 9.2 % (2.0-8.0); NEUTROPHILS # 5.2 10^3/uL (1.5-8.5); PLATELET COUNT, AUTOMATED 181 10^3/uL (150-450); RED BLOOD COUNT 4.75 10^6/uL (4.00-5.40)
[2021-06-08 13:16] LABS: BLOOD UREA NITROGEN 10 MG/DL (7-18); CALCIUM LEVEL 9.6 MG/DL (8.8-10.2); CARBON DIOXIDE LEVEL 29 MEQ/L (21-32); CHLORIDE LEVEL 105 MEQ/L (98-107); CREATININE FOR GFR 0.87 MG/DL (0.55-1.30); GLOMERULAR FILTRATION RATE > 60.0 (>39); GLUCOSE, FASTING 102 MG/DL (70-100); POTASSIUM SERUM 3.7 MEQ/L (3.5-5.1); SODIUM LEVEL 141 MEQ/L (136-145)
[2021-06-08 13:17] LABS: ALBUMIN 3.9 GM/DL (3.2-5.2); ALT/SGPT 13 U/L (12-78); BILIRUBIN,DIRECT 0.3 MG/DL (0.0-0.2); BILIRUBIN,TOTAL 1.2 MG/DL (0.2-1.0); LIPASE 58 U/L (73-393); MAGNESIUM LEVEL 2.1 MG/DL (1.8-2.4); TOTAL PROTEIN 7.3 GM/DL (6.4-8.2)
[2021-06-08] MEDS ORDERED: ISOVUE-370 76% 100ML VIAL As Ordered ONE (13:32)
[2021-06-08] MEDS ORDERED: LISI40TA4 PO (13:59)
[2021-06-08] MEDS ORDERED: PARO5TAB PO (13:59)
[2021-06-08] MEDS ORDERED: ACET25TA12 PO (13:59)
[2021-06-08] MEDS ORDERED: SIMV10TA21 PO (13:59)
[2021-06-08] MEDS ORDERED: OMEP-173 PO (13:59)
[2021-06-08] MEDS ORDERED: HOME MED LIST COMPLETE! XX SCH (14:00)
[2021-06-08] MEDS ORDERED: NS 1,000 ML IV ONE (14:40)
[2021-06-08] MEDS ORDERED: ACETAMINOPHEN TAB 650MG DOSE (2X325MG) PO PRN (15:35)
[2021-06-08] MEDS ORDERED: OMEPRAZOLE 20 MG CAP PO SCH (18:00)
[2021-06-08] MEDS: CIPROFLOXACIN 400 MG in IV 1 EA IV SCH (18:00)
[2021-06-08] MEDS ORDERED: PARoxetine 10MG TABLET PO SCH (18:00)
[2021-06-08] MEDS ORDERED: SIMVASTATIN 10 MG TAB PO SCH (18:00)
[2021-06-08] MEDS ORDERED: lisinopriL 40 MG TAB PO SCH (18:00)
[2021-06-08] MEDS: metroNIDAZOLE 500 MG in IV 1 EA IV SCH (20:49)
[2021-06-09 01:45] VITALS: BP 230/110
[2021-06-09] MEDS ORDERED: amLODIPine 5 MG TAB PO SCH (02:00)
[2021-06-09 02:07] VITALS: BP 230/110
[2021-06-09 04:00] VITALS: BP 187/89
[2021-06-09] MEDS: metroNIDAZOLE 500 MG in IV 1 EA IV SCH (04:29)
[2021-06-09 05:26] LABS: HEMATOCRIT 42.2 % (36.0-47.0); MEAN CORPUSCULAR HEMOGLOBIN 32.1 pg (27.0-33.0); MEAN CORPUSCULAR HGB CONC 33.2 g/dl (32.0-36.5); MEAN CORPUSCULAR VOLUME 96.8 fl (80.0-96.0); PLATELET COUNT, AUTOMATED 168 10^3/uL (150-450); RED BLOOD COUNT 4.36 10^6/uL (4.00-5.40); WHITE BLOOD COUNT 6.8 10^3/uL (4.0-10.0)
[2021-06-09 05:44] LABS: BLOOD UREA NITROGEN 10 MG/DL (7-18); CALCIUM LEVEL 8.8 MG/DL (8.8-10.2); CARBON DIOXIDE LEVEL 29 MEQ/L (21-32); CHLORIDE LEVEL 105 MEQ/L (98-107); CREATININE FOR GFR 0.88 MG/DL (0.55-1.30); GLOMERULAR FILTRATION RATE > 60.0 (>39); GLUCOSE, FASTING 95 MG/DL (70-100); MAGNESIUM LEVEL 1.9 MG/DL (1.8-2.4); POTASSIUM SERUM 3.2 MEQ/L (3.5-5.1); SODIUM LEVEL 141 MEQ/L (136-145)
[2021-06-09 06:01] VITALS: BP 150/78
[2021-06-09] MEDS: CIPROFLOXACIN 400 MG in IV 1 EA IV SCH (06:02)
[2021-06-09 08:00] VITALS: BP 145/69
[2021-06-09] MEDS ORDERED: POTASSIUM CHLORIDE 10MEQ SR TABLET PO ONE (09:00)
[2021-06-09] MEDS ORDERED: FLUBLOK(EGG FREE)(QUAD)INFLUENZA VACC 0.5ML SYRINGE 18YRS & OLDER IM ONE (09:00)
[2021-06-09] MEDS ORDERED: ENOXAPARIN 40MG/0.4ML SYRINGE (J1650 PER 10MG) SC SCH (09:00)
[2021-06-09] MEDS ORDERED: CIPR-249 PO (09:10)
[2021-06-09] MEDS ORDERED: METR-265 PO (09:10)
[2021-06-09] MEDS ORDERED: AMLO1TAB24 PO (09:10)
[2021-06-09] MEDS ORDERED: ELIQ5TAB PO (11:39)
[2021-06-09 12:00] VITALS: BP 145/74
== END 2021-06-09 14:00 | disposition home or self-care (01) | DRG 392 ==
LOC: M ED 10:09 → M ED INP 15:43 → ENRESERV 06-09 00:30 → M PCU 06-09 01:42
PROVIDERS: ADMIT Family Medicine; ATTEND Family Medicine
DX: K52.9 Noninfective gastroenteritis and colitis, unspecified (principal); R00.1 Bradycardia, unspecified; I12.9 Hypertensive chronic kidney disease with stage 1 through stage 4 chronic kidney disease, or unspecified chronic kidney disease; E78.5 Hyperlipidemia, unspecified; F32.A Depression, unspecified; Z79.899 Other long term (current) drug therapy; Z20.822 Contact with and (suspected) exposure to COVID-19; Z88.1 Allergy status to other antibiotic agents; Z88.2 Allergy status to sulfonamides; Z88.6 Allergy status to analgesic agent; Z88.8 Allergy status to other drugs, medicaments and biological substances; Z91.040 Latex allergy status; K21.9 Gastro-esophageal reflux disease without esophagitis; F41.9 Anxiety disorder, unspecified; N39.3 Stress incontinence (female) (male); M19.90 Unspecified osteoarthritis, unspecified site; G47.00 Insomnia, unspecified; E78.00 Pure hypercholesterolemia, unspecified; N18.30 Chronic kidney disease, stage 3 unspecified; R29.6 Repeated falls; Z90.49 Acquired absence of other specified parts of digestive tract; Z90.79 Acquired absence of other genital organ(s); I48.91 Unspecified atrial fibrillation

== ENCOUNTER → 2021-08-12 | Outpatient (CLI) | payer MEDICARE, OTHER ==
[~2021-08-12] MED LIST changes: +ACET25TA12 PO; +ATEN25TA PO; +E-Z-GAS II EFFERVESCENT PACKET (SODIUM BICARB./CITRIC ACID/SIMETHICONE) As Ordered ONE; +E-Z-HD 98% w/w 340GM SUSP BTL As Ordered ONE; +E-Z-PAQUE 96% w/w SUSP 176GM BTL As Ordered ONE; +ELIQ5TAB PO; +LISI40TA4 PO; +METR-265 PO
== END ==
LOC: M RAD 09:32
PROVIDERS: ATTEND Internal Medicine Gastroenterology
DX: R93.3 Abnormal findings on diagnostic imaging of other parts of digestive tract (principal); K22.89 Other specified disease of esophagus

== ENCOUNTER → 2022-04-19 | Outpatient (REF) | payer MEDICARE, OTHER ==
[~2022-04-19] MED LIST changes: -E-Z-GAS II EFFERVESCENT PACKET (SODIUM BICARB./CITRIC ACID/SIMETHICONE) As Ordered ONE; -E-Z-HD 98% w/w 340GM SUSP BTL As Ordered ONE; -E-Z-PAQUE 96% w/w SUSP 176GM BTL As Ordered ONE
[2022-04-19 17:05] LABS: HEMATOCRIT 45.4 % (36.0-47.0); HEMOGLOBIN 14.6 g/dl (12.0-15.5); MEAN CORPUSCULAR HEMOGLOBIN 32.4 pg (27.0-33.0); MEAN CORPUSCULAR HGB CONC 32.2 g/dl (32.0-36.5); MEAN CORPUSCULAR VOLUME 100.9 fl (80.0-96.0); PLATELET COUNT, AUTOMATED 139 10^3/uL (150-450); WHITE BLOOD COUNT 5.7 10^3/uL (4.0-10.0)
[2022-04-19 17:43] LABS: BLOOD UREA NITROGEN 13 MG/DL (9-23); CALCIUM LEVEL 9.3 MG/DL (8.3-10.6); CARBON DIOXIDE LEVEL 29 MMOL/L (20-31); CHLORIDE LEVEL 105 MMOL/L (98-107); CREATININE FOR GFR 0.96 MG/DL (0.55-1.30); GLOMERULAR FILTRATION RATE > 60.0 (>39); GLUCOSE, FASTING 96 MG/DL (74-106); POTASSIUM SERUM 4.2 MMOL/L (3.5-5.1); SODIUM LEVEL 141 MMOL/L (136-145)
== END ==
LOC: M LABDRWAD 16:01
PROVIDERS: ATTEND Nurse Practitioner Family
DX: R00.1 Bradycardia, unspecified (principal)

== ENCOUNTER → 2022-08-16 | Outpatient (REF) | payer MEDICARE, OTHER ==
[2022-08-16 16:29] LABS: BASO # 0.1 10^3/uL (0.0-0.2); BASO % 0.9 % (0.0-1.0); EOS # 0.2 10^3/uL (0.0-0.5); EOS % 3.9 % (0.0-3.0); HEMATOCRIT 44.6 % (36.0-47.0); HEMOGLOBIN 14.2 g/dl (12.0-15.5); LYMPH # 1.3 10^3/uL (1.5-5.0); LYMPH % 23.5 % (24.0-44.0); MEAN CORPUSCULAR HEMOGLOBIN 32.1 pg (27.0-33.0); MEAN CORPUSCULAR HGB CONC 31.8 g/dl (32.0-36.5); MEAN CORPUSCULAR VOLUME 100.9 fl (80.0-96.0); MONO # 0.6 10^3/uL (0.0-0.8); MONO % 10.3 % (2.0-8.0); NEUTROPHILS # 3.4 10^3/uL (1.5-8.5); NEUTROPHILS % 61.2 % (36.0-66.0); PLATELET COUNT, AUTOMATED 156 10^3/uL (150-450); RED BLOOD COUNT 4.42 10^6/uL (4.00-5.40); WHITE BLOOD COUNT 5.6 10^3/uL (4.0-10.0)
[2022-08-16 19:51] LABS: ALBUMIN 3.8 G/DL (3.2-5.2); BILIRUBIN,TOTAL 0.7 MG/DL (0.3-1.2); CALCIUM LEVEL 9.2 MG/DL (8.3-10.6); CREATININE FOR GFR 1.02 MG/DL (0.55-1.30); GLOMERULAR FILTRATION RATE 56.2 (>39); POTASSIUM SERUM 4.2 MMOL/L (3.5-5.1); TOTAL PROTEIN 6.9 G/DL (5.7-8.2)
== END ==
LOC: M SFHCADAM 14:00
PROVIDERS: ATTEND Family Medicine
DX: Z01.810 Encounter for preprocedural cardiovascular examination (principal); Z79.899 Other long term (current) drug therapy

== ENCOUNTER 2022-08-31 08:30 | Day surgery (SDC) | payer MEDICARE, OTHER ==
[~2022-08-31] VITALS: Ht 157.5 cm; Wt 83.5 kg
[~2022-08-31 08:30] MED LIST changes: +CYCLOPENTOLATE 1% OPHTH SOLN 2ML BTL OD SCH; +LIDOCAINE 1% SDV 5ML VIAL As Ordered ONE; +OFLOXACIN 0.3 % (OCUFLOX) OPTH SOL 5ML OD SCH; +PHENYLEPHRINE 2.5% OPHTH SOL 2ML OD SCH; +PROPARACAINE 0.5% OPHTH SOL 15ML OD ONE; +TOBRADEX OPHTH OINT 3.5 GM As Ordered ONE; +TROPICAMIDE 1% OPHTH SOLN 15ML OD SCH
[2022-08-31] MEDS ORDERED: EPINEPHrine 1MG/ML INJ 30ML MD-VIAL As Ordered ONE (10:00)
[2022-08-31] MEDS ORDERED: fentaNYL 100 MCG/2 ML INJECTION As Ordered ONE ×2 (10:39→10:54)
[2022-08-31] MEDS ORDERED: MIDAZOLAM INJ 2MG/2ML VIAL As Ordered ONE ×2 (10:39→10:54)
[2022-08-31] MEDS ORDERED: GLYCOPYRROLATE INJ 0.2 MG/ML 2 ML VIAL As Ordered ONE (10:40)
[2022-08-31] MEDS ORDERED: VISCOAT 40-30MG/ML 0.5ML SYRINGE As Ordered ONE (10:42)
[2022-08-31] MEDS ORDERED: TRIAMCINOLONE ACETONIDE SUSP 40MG/ML 1ML VIAL As Ordered ONE (11:12)
[2022-08-31 11:24] VITALS: BP 151/86
== END 2022-08-31 11:54 | disposition home or self-care (01) ==
LOC: M SDC 08:30
PROVIDERS: ATTEND Ophthalmology
DX: H25.11 Age-related nuclear cataract, right eye (principal); R00.1 Bradycardia, unspecified; I10 Essential (primary) hypertension; I48.91 Unspecified atrial fibrillation; E78.5 Hyperlipidemia, unspecified; F41.9 Anxiety disorder, unspecified; F32.A Depression, unspecified; Z79.01 Long term (current) use of anticoagulants; M81.0 Age-related osteoporosis without current pathological fracture; L40.9 Psoriasis, unspecified; Z79.899 Other long term (current) drug therapy; Z91.040 Latex allergy status; Z88.1 Allergy status to other antibiotic agents; Z88.2 Allergy status to sulfonamides; Z88.8 Allergy status to other drugs, medicaments and biological substances
CPT/HCPCS: 66984; A4649; J0171; J2250; J3010; V2632

== ENCOUNTER → 2022-09-27 | Outpatient (REF) | payer MEDICARE, OTHER ==
[~2022-09-27] MED LIST changes: -CYCLOPENTOLATE 1% OPHTH SOLN 2ML BTL OD SCH; -LIDOCAINE 1% SDV 5ML VIAL As Ordered ONE; -OFLOXACIN 0.3 % (OCUFLOX) OPTH SOL 5ML OD SCH; -PHENYLEPHRINE 2.5% OPHTH SOL 2ML OD SCH; -PROPARACAINE 0.5% OPHTH SOL 15ML OD ONE; -TOBRADEX OPHTH OINT 3.5 GM As Ordered ONE; -TROPICAMIDE 1% OPHTH SOLN 15ML OD SCH
[2022-09-27 13:20] LABS: BLOOD UREA NITROGEN 15 MG/DL (9-23); CALCIUM LEVEL 9.1 MG/DL (8.3-10.6); CARBON DIOXIDE LEVEL 29 MMOL/L (20-31); CHLORIDE LEVEL 107 MMOL/L (98-107); CREATININE FOR GFR 0.96 MG/DL (0.55-1.30); GLOMERULAR FILTRATION RATE > 60.0 (>39); GLUCOSE, FASTING 90 MG/DL (74-106); POTASSIUM SERUM 4.1 MMOL/L (3.5-5.1); SODIUM LEVEL 142 MMOL/L (136-145)
[2022-09-27 13:22] LABS: THYROID STIMULATING HORMONE 0.633 uIU/ML (0.55-4.78)
== END ==
LOC: M LABDRWAD 12:34
PROVIDERS: ATTEND Nurse Practitioner Family
DX: R06.09 Other forms of dyspnea (principal); I48.0 Paroxysmal atrial fibrillation

== ENCOUNTER 2022-11-02 07:29 | Day surgery (SDC) | payer MEDICARE, OTHER ==
[~2022-11-02] VITALS: Ht 157.5 cm; Wt 81.4 kg
[~2022-11-02 07:29] MED LIST changes: +BSS IRR 500ML/OMIDRIA 4ML IRR BAG (OR ONLY) As Ordered ONE; +CEFUROXIME 1MG/0.1ML INTRACAMERAL INJ As Ordered ONE; +CYCLOPENTOLATE 1% OPHTH SOLN 2ML BTL OS SCH; +LIDOCAINE 1% SDV 5ML VIAL As Ordered ONE; +OFLOXACIN 0.3 % (OCUFLOX) OPTH SOL 5ML OS SCH; +PHENYLEPHRINE 2.5% OPHTH SOL 2ML OS SCH; +PROPARACAINE 0.5% OPHTH SOL 15ML OS ONE; +TROPICAMIDE 1% OPHTH SOLN 15ML OS SCH
[2022-11-02] MEDS ORDERED: LIDOCAINE PRES-FREE 2% 10ML AMP As Ordered ONE (08:35)
[2022-11-02] MEDS ORDERED: propofoL 200 MG/20 ML VIAL As Ordered ONE (08:37)
[2022-11-02] MEDS ORDERED: LIDOCAINE 2% 100MG/5ML SDV (FOR ANES.) As Ordered ONE (08:37)
[2022-11-02] MEDS ORDERED: hydrALAZINE 20MG/ML 1ML VIAL As Ordered ONE (09:10)
[2022-11-02] MEDS ORDERED: MIDAZOLAM INJ 2MG/2ML VIAL As Ordered ONE (09:10)
[2022-11-02] MEDS ORDERED: fentaNYL 100 MCG/2 ML INJECTION As Ordered ONE (09:10)
[2022-11-02 10:00] VITALS: BP 148/70; TEMP 97.7; O2SAT 95
== END 2022-11-02 10:02 | disposition home or self-care (01) ==
LOC: M SDC 07:29
PROVIDERS: ATTEND Ophthalmology
DX: H25.12 Age-related nuclear cataract, left eye (principal); I48.91 Unspecified atrial fibrillation; I10 Essential (primary) hypertension; E78.5 Hyperlipidemia, unspecified; K21.9 Gastro-esophageal reflux disease without esophagitis; M81.0 Age-related osteoporosis without current pathological fracture; Z88.1 Allergy status to other antibiotic agents; Z88.2 Allergy status to sulfonamides; Z88.8 Allergy status to other drugs, medicaments and biological substances; Z91.040 Latex allergy status; Z79.01 Long term (current) use of anticoagulants; Z79.899 Other long term (current) drug therapy
CPT/HCPCS: 66984; J0360; J1097; J2250; J3010; V2632

== ENCOUNTER 2023-07-06 14:44 | Emergency (ER) | payer MEDICARE, OTHER ==
[~2023-07-06] VITALS: Ht 162.6 cm; Wt 81.8 kg
[~2023-07-06 14:44] MED LIST changes: -BSS IRR 500ML/OMIDRIA 4ML IRR BAG (OR ONLY) As Ordered ONE; -CEFUROXIME 1MG/0.1ML INTRACAMERAL INJ As Ordered ONE; -CYCLOPENTOLATE 1% OPHTH SOLN 2ML BTL OS SCH; -LIDOCAINE 1% SDV 5ML VIAL As Ordered ONE; -OFLOXACIN 0.3 % (OCUFLOX) OPTH SOL 5ML OS SCH; -PHENYLEPHRINE 2.5% OPHTH SOL 2ML OS SCH; -PROPARACAINE 0.5% OPHTH SOL 15ML OS ONE; -TROPICAMIDE 1% OPHTH SOLN 15ML OS SCH
[2023-07-06] MEDS: methocarbamoL 750 MG TAB PO ONE (17:30)
[2023-07-06] MEDS: ACETAMINOPH W/CODEINE #3 TAB UD PO ONE (17:30)
[2023-07-06 19:04] VITALS: O2SAT 95
[2023-07-06] MEDS ORDERED: ACET-716 PO (19:14)
[2023-07-06] MEDS ORDERED: METH-1165 PO (19:14)
[2023-07-06] MEDS ORDERED: PRED20TA PO (19:14)
[2023-07-06 19:20] VITALS: BP 119/58; TEMP 97; O2SAT 95
== END 2023-07-06 19:41 | disposition home or self-care (01) ==
LOC: M ED 14:44
DX: M51.26 Other intervertebral disc displacement, lumbar region (principal); M47.816 Spondylosis without myelopathy or radiculopathy, lumbar region; X50.0XXA Overexertion from strenuous movement or load, initial encounter; Y92.009 Unspecified place in unspecified non-institutional (private) residence as the place of occurrence of the external cause; Y93.89 Activity, other specified; Y99.9 Unspecified external cause status; I48.91 Unspecified atrial fibrillation; I10 Essential (primary) hypertension; E78.5 Hyperlipidemia, unspecified; N18.30 Chronic kidney disease, stage 3 unspecified; Z87.19 Personal history of other diseases of the digestive system; Z79.899 Other long term (current) drug therapy; Z88.8 Allergy status to other drugs, medicaments and biological substances; Z88.2 Allergy status to sulfonamides; Z88.1 Allergy status to other antibiotic agents; Z88.6 Allergy status to analgesic agent; Z91.040 Latex allergy status

== ENCOUNTER → 2023-08-23 | Outpatient (REF) | payer MEDICARE, OTHER ==
[~2023-08-23] MED LIST changes: +ACET-716 PO; +METH-1165 PO; +PRED20TA PO
[2023-08-23 18:39] LABS: BASO % 0.7 % (0.0-1.0); EOS # 0.2 10^3/uL (0.0-0.5); EOS % 2.9 % (0.0-3.0); HEMATOCRIT 42.1 % (36.0-47.0); HEMOGLOBIN 13.6 g/dl (12.0-15.5); LYMPH # 1.3 10^3/uL (1.5-5.0); LYMPH % 23.8 % (24.0-44.0); MEAN CORPUSCULAR HGB CONC 32.3 g/dl (32.0-36.5); MEAN CORPUSCULAR VOLUME 102.2 fl (80.0-96.0); MONO # 0.5 10^3/uL (0.0-0.8); NEUTROPHILS # 3.5 10^3/uL (1.5-8.5); NEUTROPHILS % 63.2 % (36.0-66.0); PLATELET COUNT, AUTOMATED 157 10^3/uL (150-450); RED BLOOD COUNT 4.12 10^6/uL (4.00-5.40); WHITE BLOOD COUNT 5.5 10^3/uL (4.0-10.0)
[2023-08-23 19:09] LABS: ALBUMIN 3.9 G/DL (3.2-5.2); BILIRUBIN,TOTAL 0.7 MG/DL (0.3-1.2); CALCIUM LEVEL 8.9 MG/DL (8.3-10.6); CREATININE FOR GFR 0.99 MG/DL (0.55-1.30); GLOMERULAR FILTRATION RATE 58.1 (>39); POTASSIUM SERUM 4.3 MMOL/L (3.5-5.1); TOTAL PROTEIN 6.9 G/DL (5.7-8.2)
== END ==
LOC: M SFHCADAM 13:53
PROVIDERS: ATTEND Family Medicine
DX: Z01.818 Encounter for other preprocedural examination (principal)

== ENCOUNTER → 2023-08-25 | Outpatient (REF) | payer MEDICARE, OTHER ==
[2023-08-25 14:08] LABS: BASO % 0.6 % (0.0-1.0); EOS # 0.2 10^3/uL (0.0-0.5); EOS % 3.8 % (0.0-3.0); HEMATOCRIT 41.6 % (36.0-47.0); HEMOGLOBIN 13.9 g/dl (12.0-15.5); LYMPH # 1.3 10^3/uL (1.5-5.0); LYMPH % 27.4 % (24.0-44.0); MEAN CORPUSCULAR HEMOGLOBIN 33.4 pg (27.0-33.0); MEAN CORPUSCULAR HGB CONC 33.4 g/dl (32.0-36.5); MONO # 0.4 10^3/uL (0.0-0.8); MONO % 8.7 % (2.0-8.0); NEUTROPHILS # 2.8 10^3/uL (1.5-8.5); NEUTROPHILS % 59.3 % (36.0-66.0); PLATELET COUNT, AUTOMATED 152 10^3/uL (150-450); RED BLOOD COUNT 4.16 10^6/uL (4.00-5.40); WHITE BLOOD COUNT 4.7 10^3/uL (4.0-10.0)
[2023-08-25 14:12] LABS: THYROID STIMULATING HORMONE 1.231 uIU/ML (0.55-4.78)
[2023-08-25 14:14] LABS: ALBUMIN 3.7 G/DL (3.2-5.2); ALKALINE PHOSPHATASE 130 U/L (46-116); ALT/SGPT 12 U/L (7.0-40); AST/SGOT 15 U/L (<34); BILIRUBIN,TOTAL 1.2 MG/DL (0.3-1.2); BLOOD UREA NITROGEN 11 MG/DL (9-23); CALCIUM LEVEL 9.1 MG/DL (8.3-10.6); CARBON DIOXIDE LEVEL 30 MMOL/L (20-31); CHLORIDE LEVEL 109 MMOL/L (98-107); CHOLESTEROL LEVEL 153 MG/DL (<200); CHOLESTEROL RISK RATIO 2.38 (<5); CREATININE FOR GFR 0.96 MG/DL (0.55-1.30); GLOMERULAR FILTRATION RATE > 60.0 (>39); GLUCOSE, FASTING 94 MG/DL (74-106); HDL CHOLESTEROL 64.1 MG/DL (>40); LDL CHOLESTEROL 72.7 MG/DL (<100); NON-HDL-C 88.9 MG/DL; POTASSIUM SERUM 4.1 MMOL/L (3.5-5.1); SODIUM LEVEL 143 MMOL/L (136-145); TOTAL PROTEIN 6.6 G/DL (5.7-8.2); TRIGLYCERIDES LEVEL 81 MG/DL (<150)
== END ==
LOC: M SFHCADAM 09:35
PROVIDERS: ATTEND Family Medicine
DX: Z00.00 Encounter for general adult medical examination without abnormal findings (principal); Z79.899 Other long term (current) drug therapy

== ENCOUNTER 2023-09-15 06:00 | Day surgery (SDC) | payer MEDICARE, OTHER ==
[~2023-09-15] VITALS: Ht 152.4 cm; Wt 81.6 kg
[2023-09-15] MEDS ORDERED: LR 1,000 ML IV SCH (06:40)
[2023-09-15] MEDS ORDERED: LIDOCAINE 2% 100MG/5ML SDV (FOR ANES.) As Ordered ONE (07:19)
[2023-09-15] MEDS ORDERED: propofoL 200 MG/20 ML VIAL As Ordered ONE (07:19)
[2023-09-15] MEDS ORDERED: fentaNYL 100 MCG/2 ML INJECTION As Ordered ONE (07:20)
[2023-09-15] MEDS ORDERED: MIDAZOLAM INJ 2MG/2ML VIAL As Ordered ONE (07:20)
[2023-09-15] MEDS: VANCOMYCIN HCL 1,000 MG, VIAL MATE ADAPTER 1 EACH in D5W 250 ML IV ONE (07:21)
[2023-09-15] MEDS: LIDOCAINE 1% SDV 30ML VIAL As Ordered ONE (07:59)
[2023-09-15] MEDS ORDERED: KETOROLAC 60MG 2ML VIAL As Ordered ONE (08:00)
[2023-09-15] MEDS ORDERED: ACETAMINOPHEN 1000MG 100ML IV BAG As Ordered ONE (08:00)
[2023-09-15 09:40] VITALS: BP 132/71; TEMP 97.6; O2SAT 97
== END 2023-09-15 10:00 | disposition home or self-care (01) ==
LOC: M SDC 06:00
PROVIDERS: ATTEND Podiatrist Foot & Ankle Surgery
DX: M20.5X1 Other deformities of toe(s) (acquired), right foot (principal); M79.671 Pain in right foot; I48.91 Unspecified atrial fibrillation; I10 Essential (primary) hypertension; E78.00 Pure hypercholesterolemia, unspecified; Z79.899 Other long term (current) drug therapy; Z79.01 Long term (current) use of anticoagulants; K21.9 Gastro-esophageal reflux disease without esophagitis; Z88.2 Allergy status to sulfonamides; Z90.710 Acquired absence of both cervix and uterus; Z88.6 Allergy status to analgesic agent; Z88.1 Allergy status to other antibiotic agents; Z90.49 Acquired absence of other specified parts of digestive tract
CPT/HCPCS: 28110; 28899; 93005; J0131; J0665; J1885; J2250; J3010; J3370

== ENCOUNTER → 2024-01-17 | Outpatient (REF) | payer MEDICARE, OTHER | LOC: M SFHCADAM 15:57 | PROVIDERS: ATTEND Family Medicine | DX: R19.7 Diarrhea, unspecified (principal) ==

== ENCOUNTER 2024-06-29 08:45 | Inpatient (IN) | payer MEDICARE, OTHER ==
[~2024-06-29] VITALS: Ht 162.6 cm; Wt 75.4 kg
[2024-06-29] MEDS: IPRATROPIUM 0.5MG/ALBUTEROL 2.5MG INH SOL UD 3ML (DUONEB) NEB PRN (09:21)
[2024-06-29 09:44] LABS: ABG BASE EXCESS 2.9 (-2.0-2.0); ABG HCO3 23.3 MMOL/L (22.0-26.0); ABG O2 SATURATION 97.2 % (95.0-99.0); ABG PARTIAL PRESSURE CO2 25.9 mmHg (35.0-45.0); ABG PARTIAL PRESSURE O2 79.9 mmHg (75.0-100.0); ABG STANDARD HCO3 27.1 MMOL/L. (22.0-26.0); ABG TOTAL CO2 24.1 MMOL/L (23.0-31.0); ABG pH (ARTERIAL) 7.572 UNITS (7.350-7.450)
[2024-06-29 09:45] LABS: BASO % 0.1 % (0.0-1.0); EOS % 0.1 % (0.0-3.0); HEMOGLOBIN 15.7 g/dl (12.0-15.5); LYMPH % 6.7 % (24.0-44.0); MEAN CORPUSCULAR HEMOGLOBIN 33.6 pg (27.0-33.0); MEAN CORPUSCULAR HGB CONC 34.1 g/dl (32.0-36.5); MEAN CORPUSCULAR VOLUME 98.5 fl (80.0-96.0); MONO # 0.8 10^3/uL (0.0-0.8); MONO % 5.2 % (2.0-8.0); NEUTROPHILS % 87.3 % (36.0-66.0); PLATELET COUNT, AUTOMATED 303 10^3/uL (150-450); RED BLOOD COUNT 4.67 10^6/uL (4.00-5.40); WHITE BLOOD COUNT 14.9 10^3/uL (4.0-10.0)
[2024-06-29] MEDS: NS (Normal Saline) 0.9% 1,000 ML IV ONE (09:53)
[2024-06-29] MEDS: LevoFLOXacin IV 750 MG in IV 1 EA IV ONE (10:44)
[2024-06-29 11:10] LABS: ALBUMIN 2.8 G/DL (3.2-5.2); APPEARANCE, URINE MANUAL CLOUDY (CLEAR); BILIRUBIN,DIRECT 0.3 MG/DL (<0.4); BILIRUBIN,TOTAL 1.1 MG/DL (0.3-1.2); CALCIUM LEVEL 8.9 MG/DL (8.3-10.6); COLOR, URINE MANUAL YELLOW (YELLOW); CREATININE FOR GFR 3.15 MG/DL (0.55-1.30); GLOMERULAR FILTRATION RATE 15.2 (>39); POTASSIUM SERUM 4.3 MMOL/L (3.5-5.1); TOTAL PROTEIN 6.4 G/DL (5.7-8.2)
[2024-06-29 11:11] LABS: BILIRUBIN, URINE MANUAL 2+ (NEGATIVE); GLUCOSE, URINE (UA) MANUAL TRACE(50 MG/DL) mg/dL (NEGATIVE); KETONE, URINE MANUAL NEGATIVE (NEGATIVE); LEUKOCYTE ESTERASE, URINE MAN 1+ (NEGATIVE); NITRITE, URINE MANUAL NEGATIVE (NEGATIVE); PROTEIN, URINE MANUAL 1+ mg/dL (NEGATIVE); UROBILINOGEN, URINE MANUAL NORMAL (NORMAL)
[2024-06-29 11:12] LABS: BLOOD URINE MANUAL TRACE (NEGATIVE)
[2024-06-29 11:14] LABS: BACTERIA, URINE MOD AMOUNT; RBC, URINE 0-1 /hpf (0-3); SQUAMOUS EPITHELIAL CELL URINE SMALL AMOUNT /hpf (SMALL AMT); WBC, URINE 20-30 /hpf (0-3)
[2024-06-29 11:15] LABS: HYALINE CAST, URINE NONE SEEN /lpf (0-1)
[2024-06-29 11:22] LABS: PROCALCITONIN 0.34 ng/ml
[2024-06-29] MEDS: [UNRECOGNIZED DRUG - OTHER] IV ONE (11:42)
[2024-06-29] MEDS: NS 0.9% IV ONE (11:42)
[2024-06-29] MEDS ORDERED: AMLO1TAB24 PO (11:59)
[2024-06-29] MEDS ORDERED: CHLO1TAB35 PO (11:59)
[2024-06-29] MEDS ORDERED: ELIQ5TAB PO (11:59)
[2024-06-29] MEDS ORDERED: NYST1POW3 TOP (11:59)
[2024-06-29] MEDS ORDERED: BENZ200C70 PO (11:59)
[2024-06-29] MEDS ORDERED: HOME MED LIST COMPLETE! XX SCH (12:05)
[2024-06-29] MEDS ORDERED: ONDANSETRON 4MG 2ML VIAL IV PRN (16:55)
[2024-06-29] MEDS: NS (Normal Saline) 0.9% 1,000 ML IV SCH (17:05)
[2024-06-29] MEDS: PIPERACILLIN/TAZOBACTAM SOD 2.25 GM in DEXTROSE 5% (D5W) ADV/MINI-BAG 50 ML IV SCH (18:58)
[2024-06-29 20:25] VITALS: BP 153/66; TEMP 97.2; O2SAT 96
[2024-06-29] MEDS: OMEPRAZOLE 20MG CAP PO SCH (20:55)
[2024-06-29] MEDS: PARoxetine 10MG TABLET PO SCH (20:55)
[2024-06-29] MEDS: HEPARIN SOD (PORCINE) 5000UNITS/ML 1ML VIAL/SYRINGE SC SCH (20:55)
[2024-06-29] MEDS: NYSTATIN 100,000 UNITS/GM TOPICAL PWD 15GM TOP SCH (22:03)
[2024-06-30] MEDS: RAMELTEON 8 MG TAB (ROZEREM) PO PRN (01:40)
[2024-06-30 04:00] VITALS: BP 141/63; TEMP 97.2; O2SAT 96
[2024-06-30 06:56] LABS: BASO % 0.1 % (0.0-1.0); HEMATOCRIT 34.8 % (36.0-47.0); LYMPH # 0.7 10^3/uL (1.5-5.0); LYMPH % 5.8 % (24.0-44.0); MEAN CORPUSCULAR HEMOGLOBIN 32.5 pg (27.0-33.0); MEAN CORPUSCULAR HGB CONC 33.6 g/dl (32.0-36.5); MEAN CORPUSCULAR VOLUME 96.7 fl (80.0-96.0); MONO # 0.5 10^3/uL (0.0-0.8); MONO % 4.2 % (2.0-8.0); NEUTROPHILS # 10.3 10^3/uL (1.5-8.5); NEUTROPHILS % 89.5 % (36.0-66.0); PLATELET COUNT, AUTOMATED 229 10^3/uL (150-450); WHITE BLOOD COUNT 11.5 10^3/uL (4.0-10.0)
[2024-06-30 07:04] LABS: HEMOGLOBIN 11.7 g/dl (12.0-15.5)
[2024-06-30 07:21] LABS: CALCIUM LEVEL 8.8 MG/DL (8.3-10.6); CREATININE FOR GFR 2.33 MG/DL (0.55-1.30); GLOMERULAR FILTRATION RATE 21.6 (>39); POTASSIUM SERUM 3.9 MMOL/L (3.5-5.1)
[2024-06-30 10:07] LABS: C REACTIVE PROTEIN QUANTITATIV 4.12 MG/DL (<1.0)
[2024-06-30 12:00] VITALS: BP 127/60; TEMP 97.6; O2SAT 94
[2024-06-30 20:35] VITALS: BP 138/63; TEMP 98.2; O2SAT 96
[2024-06-30] MEDS: BENZONATATE 100MG CAPSULE PO PRN (21:17)
[2024-06-30 23:30] LABS: INR 1.15; PARTIAL THROMBOPLASTIN TIME 27.6 SECONDS (24.8-34.2)
[2024-06-30 23:34] LABS: ALBUMIN 2.5 G/DL (3.2-5.2); BILIRUBIN,TOTAL 0.9 MG/DL (0.3-1.2); CALCIUM LEVEL 8.8 MG/DL (8.3-10.6); CREATININE FOR GFR 1.86 MG/DL (0.55-1.30); MAGNESIUM LEVEL 1.6 MG/DL (1.8-2.4); TOTAL PROTEIN 5.6 G/DL (5.7-8.2)
[2024-06-30] MEDS: MAG SULF 1GM/100ML (MAG RUN) 1 GM in IV 1 EA IV ONE (23:56)
[2024-07-01 04:17] VITALS: BP 134/70; TEMP 98.8; O2SAT 90
[2024-07-01 07:05] VITALS: BP 112/68
[2024-07-01] MEDS: MAG SULF 1GM/100ML (MAG RUN) 1 GM in IV 1 EA IV ONE (07:30)
[2024-07-01 08:05] LABS: BASO % 0.1 % (0.0-1.0); EOS % 0.2 % (0.0-3.0); HEMATOCRIT 31.5 % (36.0-47.0); HEMOGLOBIN 10.3 g/dl (12.0-15.5); LYMPH # 0.9 10^3/uL (1.5-5.0); LYMPH % 9.5 % (24.0-44.0); MEAN CORPUSCULAR HGB CONC 32.7 g/dl (32.0-36.5); MONO # 0.7 10^3/uL (0.0-0.8); NEUTROPHILS # 7.4 10^3/uL (1.5-8.5); NEUTROPHILS % 81.9 % (36.0-66.0); PLATELET COUNT, AUTOMATED 207 10^3/uL (150-450); RED BLOOD COUNT 3.12 10^6/uL (4.00-5.40); WHITE BLOOD COUNT 9.1 10^3/uL (4.0-10.0)
[2024-07-01] MEDS: APIXABAN 5 MG TAB (ELIQUIS) PO SCH (08:07)
[2024-07-01 08:35] LABS: C REACTIVE PROTEIN QUANTITATIV 1.78 MG/DL (<1.0); CREATININE FOR GFR 1.62 MG/DL (0.55-1.30); GLOMERULAR FILTRATION RATE 32.8 (>39); POTASSIUM SERUM 3.7 MMOL/L (3.5-5.1)
[2024-07-01] MEDS: PIPERACILLIN/TAZOBACTAM SOD 3.375 GM in DEXTROSE 5% (D5W) ADV/MINI-BAG 50 ML IV SCH (09:05)
[2024-07-01 11:28] VITALS: BP 112/56; TEMP 97.9; O2SAT 93
[2024-07-01 19:45] VITALS: BP 125/64; TEMP 98; O2SAT 96
[2024-07-02 03:48] VITALS: BP 114/57; TEMP 97.2; O2SAT 92
[2024-07-02 07:01] LABS: BASO % 0.2 % (0.0-1.0); EOS # 0.1 10^3/uL (0.0-0.5); HEMATOCRIT 32.2 % (36.0-47.0); HEMOGLOBIN 10.5 g/dl (12.0-15.5); LYMPH # 0.9 10^3/uL (1.5-5.0); LYMPH % 14.9 % (24.0-44.0); MEAN CORPUSCULAR HEMOGLOBIN 32.5 pg (27.0-33.0); MEAN CORPUSCULAR HGB CONC 32.6 g/dl (32.0-36.5); MEAN CORPUSCULAR VOLUME 99.7 fl (80.0-96.0); MONO # 0.6 10^3/uL (0.0-0.8); MONO % 10.3 % (2.0-8.0); NEUTROPHILS # 4.4 10^3/uL (1.5-8.5); NEUTROPHILS % 72.9 % (36.0-66.0); PLATELET COUNT, AUTOMATED 213 10^3/uL (150-450); RED BLOOD COUNT 3.23 10^6/uL (4.00-5.40); WHITE BLOOD COUNT 6.1 10^3/uL (4.0-10.0)
[2024-07-02 07:23] LABS: C REACTIVE PROTEIN QUANTITATIV 2.02 MG/DL (<1.0)
[2024-07-02 07:31] LABS: CALCIUM LEVEL 8.4 MG/DL (8.3-10.6); CREATININE FOR GFR 1.36 MG/DL (0.55-1.30); GLOMERULAR FILTRATION RATE 40.1 (>39); POTASSIUM SERUM 3.9 MMOL/L (3.5-5.1)
[2024-07-02] MEDS: FLUBLOK(EGGFREE) TRIVAL(24-25) VACCINE PF 0.5ML SYRINGE 18YRS & OLDER IM.IMMUN ONE (10:23)
[2024-07-02 10:41] LABS: PROCALCITONIN 0.08 ng/ml
[2024-07-02 12:00] VITALS: BP 114/55; TEMP 97.7; O2SAT 95
[2024-07-02] MEDS ORDERED: PROBCAP14 PO (12:58)
[2024-07-02] MEDS ORDERED: AMOX875T2 PO (12:58)
== END 2024-07-02 14:10 | disposition hospice, home (50) | DRG 872 ==
LOC: M ED 08:45 → EDBD 08:45 → M ED INP 15:57 → M MS4PR 20:30
PROVIDERS: ADMIT Internal Medicine Nephrology; ATTEND Internal Medicine Nephrology
DX: A41.9 Sepsis, unspecified organism (principal); N17.9 Acute kidney failure, unspecified; K57.80 Diverticulitis of intestine, part unspecified, with perforation and abscess without bleeding; N39.0 Urinary tract infection, site not specified; I12.9 Hypertensive chronic kidney disease with stage 1 through stage 4 chronic kidney disease, or unspecified chronic kidney disease; E78.5 Hyperlipidemia, unspecified; N18.30 Chronic kidney disease, stage 3 unspecified; I49.1 Atrial premature depolarization; F32.A Depression, unspecified; F41.9 Anxiety disorder, unspecified; K21.9 Gastro-esophageal reflux disease without esophagitis; N39.3 Stress incontinence (female) (male); M19.90 Unspecified osteoarthritis, unspecified site; G47.00 Insomnia, unspecified; B37.2 Candidiasis of skin and nail; B96.20 Unspecified Escherichia coli [E. coli] as the cause of diseases classified elsewhere; Z90.49 Acquired absence of other specified parts of digestive tract; Z90.79 Acquired absence of other genital organ(s); Z98.41 Cataract extraction status, right eye; Z98.42 Cataract extraction status, left eye; Z79.01 Long term (current) use of anticoagulants; Z79.899 Other long term (current) drug therapy; Z91.040 Latex allergy status; Z91.048 Other nonmedicinal substance allergy status; Z88.1 Allergy status to other antibiotic agents; Z88.2 Allergy status to sulfonamides; Z88.6 Allergy status to analgesic agent; Z88.8 Allergy status to other drugs, medicaments and biological substances

== ENCOUNTER → 2024-12-17 | Outpatient (CLI) | payer MEDICARE, OTHER ==
[~2024-12-17] MED LIST changes: +AMOX875T2 PO; +BENZ200C70 PO; +CHLO1TAB35 PO; +LISI40TA10 PO; -LISI40TA4 PO; +NYST1POW3 TOP; +PROBCAP14 PO
== END ==
LOC: M WHC 12:56
PROVIDERS: ATTEND Family Medicine
DX: M81.0 Age-related osteoporosis without current pathological fracture (principal); M85.88 Other specified disorders of bone density and structure, other site

== ENCOUNTER → 2025-02-07 | Outpatient (CLI) | payer MEDICARE, OTHER | LOC: M ADAMS 13:43 | PROVIDERS: ATTEND Physician Assistant Medical | DX: M25.572 Pain in left ankle and joints of left foot (principal) ==

== ENCOUNTER → 2025-02-07 | Outpatient (REF) | payer MEDICARE, OTHER ==
[2025-02-07 18:49] LABS: BASO # 0.0 10^3/uL (0.0-0.2); BASO % 0.8 % (0.0-1.0); EOS # 0.1 10^3/uL (0.0-0.5); EOS % 1.4 % (0.0-3.0); LYMPH # 1.1 10^3/uL (1.5-5.0); LYMPH % 21.4 % (24.0-44.0); MONO # 0.5 10^3/uL (0.0-0.8); MONO % 9.4 % (2.0-8.0); NEUTROPHILS # 3.4 10^3/uL (1.5-8.5); NEUTROPHILS % 66.8 % (36.0-66.0); PLATELET COUNT, AUTOMATED 150 10^3/uL (150-450)
[2025-02-07 18:55] LABS: C REACTIVE PROTEIN QUANTITATIV < 0.50 MG/DL (<1.0)
[2025-02-07 19:02] LABS: ERYTHROCYTE SEDIMENTATION RATE 23 mm/hr (0-30)
== END ==
LOC: M SFHCADAM 13:37
PROVIDERS: ATTEND Physician Assistant Medical
DX: M25.572 Pain in left ankle and joints of left foot (principal)